=== PATIENT | male | born 1975 | race Two or more races ===

== ENCOUNTER → 2024-09-08 09:31 | Outpatient (BNVA) | payer OTHER, SELFPAY | PROVIDERS: Visit Provider Physician Assistant Medical | DX: S64.22XA Injury of radial nerve at wrist and hand level of left arm, initial encounter (principal); X50.3XXA Overexertion from repetitive movements, initial encounter | CPT/HCPCS: 99203 ==

== ENCOUNTER 2024-09-21 11:00 | Outpatient (RCR) | payer OTHER, SELFPAY ==
--- NOTE | 2024-09-14 12:15 | MHC.OT.EP ---
[address] [phone] Occupational Therapy Plan of Care Patient Name: Michael Pisano Date of Evaluation: 09/14/24 Diagnosis: Left Wrist Radial Nerve Injury Pain Location: 8/10 resting 10/10 sharp, electric shock, pins, needles Pain Score: 8 Pain Scale Used: Numeric (0 - 10) Aggravating Factors: General use of left hand Alleviating Factors: Naproxen (no relief), trialed ice and heat, elevation Wrist orthosis helps Assessment: 49 yo male was at work, lifting a bucket with a coworker (150lb), coworker let bucket slip and wrist twisted back. This injury has occurred several times over the past weeks, this last time he went to the ER and then referred to OT from . On assessment today he is very guarded and has high pain through dorsal hand (specifically index and thumb) across radial wrist w/ high sensitivity over dorsal radial sensory nerve and into radial nerve w/ tenderness over radial tunnel and distal tricep. He is unable to demo gross grasp for strength testing and has very limited active wrist ROM (no wrist drop present). We have fabricated volar based thumb spica splint w/ goal of resting radial nerve and sensory nerve and will progress w/ range, desensitization and functional use of left hand for daily activities. 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 Thank you once again for your referral.
--- NOTE | 2024-10-26 09:43 | MHC.OT.DC ---
[address] [phone] F: [phone] Occupational Therapy Discharge Note Patient Name: Michael Pisano Provider: Gillian Patel PA-C Diagnosis: Left Wrist Radial Nerve Injury Date of Evaluation: 09/14/24 Date of Discharge: Treatments to Date: 2 Discharge Summary: Michael was seen for initial OT visit and one follow up s/p radial nerve injury. We were unable to provide treatment due to high pain/hypersensitivity and inability to participate in any activity or manual work. We have fit w/ custom orthosis to allow nerve healing, but pt finding uncomfortable. Discussed w/ patient and decided to hold therapy until nerve pain reduced or follow up w/ provider. From initial eval: 49 yo male was at work, lifting a bucket with a coworker (150lb), coworker let bucket slip and wrist twisted back. This injury has occurred several times over the past weeks, this last time he went to the ER and then referred to OT from . On assessment today he is very guarded and has high pain through dorsal hand (specifically index and thumb) across radial wrist w/ high sensitivity over dorsal radial sensory nerve and into radial nerve w/ tenderness over radial tunnel and distal tricep. He is unable to demo gross grasp for strength testing and has very limited active wrist ROM (no wrist drop present). We have fabricated volar based thumb spica splint w/ goal of resting radial nerve and sensory nerve and will progress w/ range, desensitization and functional use of left hand for daily activities. Electronically Signed By: Nayeli Lozoya OTR/L CHT Reviewed/agree with student documentation: Therapist: Please Sign and return to therapist, thank you for your referral.
== END 2024-10-26 09:44 | disposition home or self-care (01) ==
LOC: HO.OT 11:00
PROVIDERS: Visit Provider Physician Assistant Medical
DX: S64.22 Injury of radial nerve at wrist and hand level of left arm (principal)
CPT/HCPCS: 29125; 97110; 97140; 97166; 97760

== ENCOUNTER → 2024-09-23 09:06 | Outpatient (BNVA) | payer OTHER, SELFPAY | PROVIDERS: Visit Provider Physician Assistant Medical | DX: S64.22 Injury of radial nerve at wrist and hand level of left arm (principal); X50.3XXD Overexertion from repetitive movements, subsequent encounter | CPT/HCPCS: 99214 ==

== ENCOUNTER 2024-09-24 09:30 | Outpatient (AMB) | payer OTHER, SELFPAY ==
--- NOTE | 2024-09-24 09:52 | MHC.OFFVIS ---
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 Seen at [facility] following Saturday, where xrays were taken and was told he has a radial nerve damage, splinted and sent home. He was then seen at work connection where he was given a brace and referred to orthopedics. States he has had numbness in his left hand that started about 1 month ago. Patient states this has occurred about 3 times. He recall this happens about once a week. 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 Seen at [facility] following Saturday, where xrays were taken and was told he has a radial nerve damage, splinted and sent home. He was then seen at work connection where he was given a brace and referred to orthopedics. States he has had numbness in his left hand that started about 1 month ago. Patient states this has occurred about 3 times. He recall this happens about once a week. [facility] Social History (Updated 09/24/24 @ 10:01 by ALAN Alford) Current occupational status: employed Current occupation: [employer]/ RT hand Review of Systems Const All systems reviewed & are unremarkable except as noted in HPI and below Physical Exam Vital Signs: BMI result Body Mass Index 27.1 Extrem Other: Patient is alert, oriented, and in no acute distress. Neuro: Diminished sensation of the tip of the index and middle fingers of the right hand, particularly in the dorsal aspect Vascular: Cap refill brisk Pain: Very significant tenderness to even gentle palpation of the dorsal aspect of the right thumb Pain with range of motion of the right hand ROM: Patient is unable to flex the right index or middle fingers fully, able to get approximately 30% of the way to a closed fist Patient patient is able to make a closed fist and extend all other digits of the right hand fully and without difficulty Skin: No lacerations or abrasions. General: No ecchymosis, erythema, or evidence of infection. Psych: Appears grossly normal Affect normal Attitude cooperative Assessment & Plan Assessment & Plan (1) Injury of radial nerve at wrist and hand level of right arm, sequela: Code(s): S64.21XS - Injury of radial nerve at wrist and hand level of right arm, sequela Category: Medical Plan 1. Concern for radial nerve injury of right hand Patient is educated about this condition Patient is educated about the typical treatment course At this time, patient is referred for EMG and nerve conduction study for assessment of the health of the nerves of the right upper extremity Patient will follow-up after EMG and nerve conduction study for results review and discussion of further treatment options if indicated with Dr. Ceballos Patient is amenable to this plan Follow-up after EMG and nerve conduction study, sooner with any acute concerns Orders: Orders NE electromyogram (EMG) Today R20.0 - Anesthesia of skin, R20.2 - Paresthesia of skin NE nerve conduction velocity Today R20.0 - Anesthesia of skin, R20.2 - Paresthesia of skin Coding Level of Care Code New Pt Level 3 (92704) Diagnoses Injury of radial nerve at wrist and hand level of right arm, sequela S64.21XS
[2024-09-24 09:53] VITALS: BMI 27.1
== END 2024-09-24 10:10 | disposition home or self-care (01) ==
LOC: HO.HOS 09:30
DX: S64.2 Injury of radial nerve at wrist and hand level (principal)
CPT/HCPCS: 99203

== ENCOUNTER 2024-09-24 09:30 | Outpatient (REF) | payer OTHER, SELFPAY | END 2024-09-24 09:31 | disposition home or self-care (01) | LOC: HO.HOSX 09:30 | DX: S64.2 Injury of radial nerve at wrist and hand level (principal) | CPT/HCPCS: 99202 ==

== ENCOUNTER → 2024-10-18 09:24 | Outpatient (BNV) | payer OTHER, SELFPAY | PROVIDERS: Visit Provider Radiology Diagnostic Radiology | DX: M67.432 Ganglion, left wrist (principal) | CPT/HCPCS: 73218 ==

== ENCOUNTER 2024-10-18 09:49 | Outpatient (REF) | payer OTHER, SELFPAY ==
--- NOTE | ~2024-10-18 | MR_ITS ---
CLINICAL HISTORY: EDEMA, PAIN DECREASED ROM INDEX FINGER IN RADIAL NERVE MR left wrist without gadolinium Comparison: OT - MR HAND LT WO CON - 10/18/24 10:24 EDT Findings: No acute fractures. No pathologic bone lesions. Subchondral cysts with mild surrounding degenerative marrow edema in the proximal lunate. Small well-circumscribed high T2 intensity foci within the 3rd and 4th metacarpal heads, suggestive of enchondroma. No effusion. Scapholunate, and lunotriquetral ligaments are intact. Flexor and extensor tendons are intact. No triangular fibrocartilage complex tears. The flexor retinaculum is intact. Median and ulnar nerves are normal. IMPRESSION: 1. Degenerative cyst within the lunate. 2. Otherwise negative examination. This document has been electronically signed by: Orly Wilson MD on 10/19/2024 17:01:44
== END 2024-10-18 09:50 | disposition home or self-care (01) ==
LOC: HO.MRI 09:49
PROVIDERS: Visit Provider Internal Medicine
DX: S64.21XA Injury of radial nerve at wrist and hand level of right arm, initial encounter (principal)
CPT/HCPCS: 73218

== ENCOUNTER 2024-11-04 13:04 | Outpatient (REF) | payer OTHER, SELFPAY ==
--- NOTE | 2024-11-04 13:06 | EMG_ITS ---
Chief complaint: Lifting injury, left hand, with persistent numbness and tenderness over inner side of left 2nd digit. Some give-way weakness on wrist extension due to tenderness, but overall no wrist drop. No atrophy. Reason for referral: Evaluate for radial neuropathy Referred by: Virgilio GRAMAJO Procedure done: Left upper extremity NCS/EMG Precautions and/or limitations: None The limb temperature was monitored continuously and remained between 32-36 degrees C during the performance of the NCS. Ulnar motor NCS was performed with moderate elbow flexion between 70-90 degrees, with across-elbow distance of 10 cm. Nerve Conduction Studies Anti Sensory Summary Table ?Stim Site NR Onset (ms) Norm Onset (ms) Peak (ms) Norm Peak (ms) O-P Amp (?V) Norm O-P Amp Site1 Site2 Delta-0 (ms) Dist (cm) Erwin (m/s) Norm Erwin (m/s) Left DorsCutan Anti Sensory (Dorsum 5th MC) Wrist ? 4.3 4.9 8.9 Wrist Dorsum 5th MC 4.3 0.0 Left Median Anti Sensory (2nd Digit) Wrist ? 2.5 3.3 <3.6 25.5 >10 Wrist 2nd Digit 2.5 14.0 56 Left Radial Anti Sensory (Thumb) Forearm ? 1.6 2.6 <3.1 8.0 Forearm Thumb 1.6 0.0 Left Ulnar Anti Sensory (5th Digit) Wrist ? 2.5 3.1 <3.7 11.0 >15.0 Wrist 5th Digit 2.5 14.0 56 Motor Summary Table ?Stim Site NR Onset (ms) Norm Onset (ms) O-P Amp (mV) Norm O-P Amp iAmp (mV) Amp (1st) (%) Site1 Site2 Delta-0 (ms) Dist (cm) Erwin (m/s) Norm Erwin (m/s) Left Median Motor (Abd Poll Brev) Wrist ? 3.5 <3.9 12.7 >4.5 15.2 100.0 Elbow Wrist 4.0 20.0 50 >45 Elbow ? 7.5 11.6 13.7 91.3 Left Radial Motor (Arm) Wrist ? 1.4 <2.5 4.0 >1.7 5.0 100.0 Wrist Arm 1.4 20.0 143 Mid Forearm ? 3.8 7.8 9.8 195.0 Mid Forearm Wrist 2.4 17.0 71 >60 Elbow ? 6.6 5.1 6.6 127.5 Elbow Mid Forearm 2.8 0.0 Left Ulnar Motor (Abd Dig Minimi) Wrist ? 2.5 <3.0 5.6 >5 6.9 100.0 B Elbow Wrist 3.7 21.5 58 >45 B Elbow ? 6.2 9.0 11.5 160.7 A Elbow B Elbow 1.7 10.0 59 >45 A Elbow ? 7.9 8.7 11.1 155.4 Left Ulnar Motor (FDI) Wrist ? 4.0 <3.0 2.6 >5 3.1 100.0 B Elbow Wrist 3.8 21.0 55 >45 B Elbow ? 7.8 8.5 10.3 326.9 A Elbow B Elbow 1.8 10.0 56 >45 A Elbow ? 9.6 8.1 9.9 311.5 EMG ?Side Muscle Nerve Root Ins Act Fibs Psw Amp Dur Poly Recrt Int Pat Comment Left 1stDorInt Ulnar C8-T1 Nml Nml Nml Nml Nml 0 Nml Complete Left Biceps Musculocut C5-6 Nml Nml Nml Nml Nml 0 Nml Complete Left Triceps Radial C6-7-8 Nml Nml Nml Nml Nml 0 Nml Complete Left Deltoid Axillary C5-6 Nml Nml Nml Nml Nml 0 Nml Complete Left FlexCarpiUln Ulnar C8,T1 Nml Nml Nml Nml Nml 0 Nml Complete Left ExtIndicis Radial (Post Int) C7-8 Nml Nml Nml Nml Nml 0 Nml Complete FINDINGS: Left ulnar motor nerve, recording at ADM, showed normal distal latency, small amplitude distally only and normal conduction velocity. No conduction block across elbow. Same left ulnar motor nerve, now recording at FDI, also showed small distal amplitude with normal distal latency and normal conduction velocity. No conduction block across elbow. Left ulnar sensory nerve, D5, showed normal peak latency but small amplitude. Left DUCS showed prolonged peak latency but normal amplitude. All other nerves tested, including left radial motor and sensory nerves, were within normal. Concentric needle EMG was performed in selected muscles of the left upper extremity. Study did not reveal signs of electric abnormalities as shown in the table above. IMPRESSION: 1. This is an abnormal study. 2. There is electrodiagnostic evidence for left distal ulnar neuropathy/ulnar neuropathy at the wrist. 3. There is no electrodiagnostic evidence for median neuropathy, radial neuropathy, brachial plexopathy, or cervical radiculopathy. CLINICAL COMMENT: Consider repeat study in 3-6 months if does not improve conservatively by then. Thank you for your kind referral. Eva Daily MD, CHAVEZ Board Certified, [place] Board of Physical Medicine and Rehabilitation (ABPMR) Board Certified, [place] Board of Electrodiagnostic Medicine (ABEM) [place] [id number] [facility]
== END 2024-11-04 13:05 | disposition home or self-care (01) ==
LOC: HO.NEURO 13:04
DX: R20.0 Anesthesia of skin (principal); R20.2 Paresthesia of skin; M79.642 Pain in left hand
CPT/HCPCS: 95886; 95910

== ENCOUNTER → 2024-11-04 13:06 | Outpatient (BNV) | payer OTHER, SELFPAY | PROVIDERS: Visit Provider Physical Medicine & Rehabilitation | DX: G56.21 Lesion of ulnar nerve, right upper limb (principal); S69.92XA Unspecified injury of left wrist, hand and finger(s), initial encounter; R20.0 Anesthesia of skin; R20.2 Paresthesia of skin | CPT/HCPCS: 95886; 95910 ==

== ENCOUNTER 2024-11-18 10:22 | Outpatient (AMB) | payer OTHER, SELFPAY ==
--- NOTE | 2024-11-18 10:24 | A.OFFVIS_ITS ---
Vital Signs 11/18/24 10:30 Height 5 ft 10 in Weight 189 lb BMI 27.1 Handedness Right Intake Visit Reasons: OV LT hand EMG review Intake Note: Michael is a 49 year old right hand dominant male who presents today for an EMG review s/p Left Wrist WC Injury 08/27/2024.This injury happened while he was lifting a heavy bucket (150lbs) This was being lifted with a coworker who accidentally dropped the bucked causing the patients wrist to twist. He is currently at work on light duty - No use of left hand (he reports that his employer is not abiding by this) IMPRESSION: 1. This is an abnormal study. 2. There is electrodiagnostic evidence for left distal ulnar neuropathy/ulnar neuropathy at the wrist. 3. There is no electrodiagnostic evidence for median neuropathy, radial neuropathy, brachial plexopathy, or cervical radiculopathy. Allergies No Known Allergies Allergy (Verified 11/18/24 10:29) HPI HPI OV LT hand EMG review: Details: Michael is a 49 year old right hand dominant male who presents today for an EMG review s/p Left Wrist WC Injury 08/27/2024.This injury happened while he was lifting a heavy bucket (150lbs) This was being lifted with a coworker who accidentally dropped the bucked causing the patients wrist to twist. He is currently at work on light duty - No use of left hand (he reports that his employer is not abiding by this) IMPRESSION: 1. This is an abnormal study. 2. There is electrodiagnostic evidence for left distal ulnar neuropathy/ulnar neuropathy at the wrist. 3. There is no electrodiagnostic evidence for median neuropathy, radial neuropathy, brachial plexopathy, or cervical radiculopathy. [facility] Social History Current occupational status: employed Current occupation: [employer]/ [employer] hand Review of Systems Const All systems reviewed & are unremarkable except as noted in HPI and below Physical Exam Vital Signs: BMI result Body Mass Index 27.1 Extrem Other: Patient is alert, oriented, and in no acute distress. Neuro: Diminished sensation of the tip of the index and middle fingers of the right hand, particularly in the dorsal aspect Vascular: Cap refill brisk Pain: Tender to palpation of the first webspace and R thumb Pain with range of motion of the right hand ROM: Patient patient is able to make a closed fist and extend all other digits of the right hand fully and without difficulty Skin: No lacerations or abrasions. General: No ecchymosis, erythema, or evidence of infection. Psych: Appears grossly normal Affect normal Attitude cooperative Assessment & Plan Assessment & Plan (1) Injury of radial nerve at wrist and hand level of right arm, sequela: Code(s): S64.21XS - Injury of radial nerve at wrist and hand level of right arm, sequela Category: Medical Plan 1. Concern for radial nerve injury of right hand Patient is educated about this condition Patient is educated about the typical treatment course EMG and nerve conduction study was negative for any carpal or cubital tunnel pathology, did demonstrate ulnar nerve entrapment at the wrist No evidence of ulnar neuropathy on exam or interview After discussion Dr. Ceballos, we both feel it is most likely that this patient either stretched or crushed the superficial branch of the radial nerve and this has caused the numbness and pain he is experiencing in the area of the 1st webspace Patient is educated that this will likely heal over time, but there is always a chance nerves are not able to heal fully Patient is amenable to this plan Follow-up in 6-8 weeks for reassessment, sooner with any acute concerns Coding Level of Care Code Est Pt Level 3 (07750) Diagnoses Injury of radial nerve at wrist and hand level of right arm, sequela S64.21XS
[2024-11-18 10:30] VITALS: BMI 27.1
== END 2024-11-18 10:53 | disposition home or self-care (01) ==
LOC: HO.HOS 10:22
DX: S64.21XA Injury of radial nerve at wrist and hand level of right arm, initial encounter (principal)
CPT/HCPCS: 99213

== ENCOUNTER → 2024-11-18 10:22 | Outpatient (BNVA) | payer OTHER, SELFPAY | DX: Z71.2 Person consulting for explanation of examination or test findings (principal); S64.2 Injury of radial nerve at wrist and hand level | CPT/HCPCS: 99212 ==